=== PATIENT | female | born 1990 | race Hispanic/Latino ===

== ENCOUNTER 2020-09-11 16:16 | Emergency (ER) | payer OTHER ==
[~2020-09-11] VITALS: Ht 167.6 cm; Wt 63.9 kg
[2020-09-11 16:16] VITALS: BP 130/67
[2020-09-11] MEDS ORDERED: PRENTAB53 PO (16:34)
[2020-09-11] MEDS ORDERED: PROAAER10 INH (16:34)
[2020-09-11 18:55] LABS: BASO % 0.5 % (0.0-1.0); EOS % 0.5 % (0.0-3.0); HEMATOCRIT 35.9 % (36.0-47.0); HEMOGLOBIN 12.3 g/dl (12.0-15.5); LYMPH # 1.3 10^3/uL (1.5-5.0); LYMPH % 19.8 % (24.0-44.0); MEAN CORPUSCULAR HEMOGLOBIN 30.7 pg (27.0-33.0); MEAN CORPUSCULAR HGB CONC 34.3 g/dl (32.0-36.5); MEAN CORPUSCULAR VOLUME 89.5 fl (80.0-96.0); MONO # 0.5 10^3/uL (0.0-0.8); MONO % 7.4 % (2.0-8.0); NEUTROPHILS # 4.7 10^3/uL (1.5-8.5); NEUTROPHILS % 71.3 % (36.0-66.0); PLATELET COUNT, AUTOMATED 220 10^3/uL (150-450); RED BLOOD COUNT 4.01 10^6/uL (4.00-5.40); WHITE BLOOD COUNT 6.6 10^3/uL (4.0-10.0)
--- NOTE | 2020-09-11 19:32 | REPVR ---
PROCEDURE INFORMATION: Exam: US Abdomen; Limited Exam date and time: 09/11/2020 6:50 PM Age: 30 years old Clinical indication: Injury or trauma; Fall; Swelling; Luq; ; Additional info: , fell, luq pain ? spleen/kidney TECHNIQUE: Imaging protocol: US abdomen. Real time ultrasound with image documentation. Limited exam focused on the region of clinical interest. COMPARISON: No relevant prior studies available. FINDINGS: Left kidney: Left kidney measures 12.2 x 4 by 4.8 cm. No hydronephrosis in the left kidney. Spleen: The spleen measures 10.9 x 3.6 by 7.4 cm. No splenic lesions. Intraperitoneal space: No pericapsular fluid collections noted surrounding the spleen. IMPRESSION: Normal ultrasound of the left upper quadrant. Electronically signed by: Xin Painting On 09/11/2020 19:32:22 PM
[2020-09-11 19:35] LABS: BLOOD UREA NITROGEN 10 MG/DL (7-18); CALCIUM LEVEL 8.6 MG/DL (8.5-10.1); CARBON DIOXIDE LEVEL 25 MEQ/L (21-32); CHLORIDE LEVEL 108 MEQ/L (98-107); CREATININE FOR GFR 0.56 MG/DL (0.55-1.30); GLOMERULAR FILTRATION RATE > 60.0 (>60); GLUCOSE, FASTING 85 MG/DL (70-100); HCG, SERUM QUANTITATIVE 135391 MIU/ML; POTASSIUM SERUM 3.9 MEQ/L (3.5-5.1); SODIUM LEVEL 138 MEQ/L (136-145)
== END 2020-09-11 20:30 | disposition home or self-care (01) ==
LOC: M ED 16:16
DX: O9A.211 Injury, poisoning and certain other consequences of external causes complicating pregnancy, first trimester (principal); W19.XXXA Unspecified fall, initial encounter; Y92.9 Unspecified place or not applicable; Y93.9 Activity, unspecified; Y99.9 Unspecified external cause status; Z87.59 Personal history of other complications of pregnancy, childbirth and the puerperium; O99.519 Diseases of the respiratory system complicating pregnancy, unspecified trimester; Z3A.10 10 weeks gestation of pregnancy; Z88.0 Allergy status to penicillin